=== PATIENT | male | born 2005 | race Caucasian/White ===

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

== ENCOUNTER 2024-09-27 14:06 | Emergency (ER) | payer OTHER, SELFPAY ==
--- OUTSIDE RECORDS SUMMARY | 2024-09-27 14:15 | XMS_ITS | Clinical Summary ---
Author Organization 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 Name Role Phone Unavailable Primary Care Provider Unavailabl e Allergies No known active allergies Medications No known medications Social History Tobacco Use Types Packs/Day Years Used Date Smoking Tobacco: Never Passive Smoke Exposure: Never Smokeless Tobacco: Never Tobacco Cessation:Counseling Given: Not Answered Alcohol Use Standard Drinks/Week Comments Never 0 (1 standard drink = 0.6 oz pur e alcohol) Adolescent Education Answer Date Record ed Getting School Help Needed Not on file 10/25 Feeling Safe Answer Date Recorded Are you in a relationship wi th someone who hurts you emotionally and/or physically? No 07/23/2022 Sex and Gender Information Value Date Recorded Sex Assigned at Not on file Legal Sex Male 7:50 PM CDT Gender Identity Not on file Sexual Orientation Not on file Last Filed Vital Signs Vital Sign Reading Time Taken Comments Blood Pressure 129/79 07/23/2022 9:00 PM CDT Pulse 92 07/23/2022 9:00 PM CDT Temperature 36.4 C (97.5 F) 07/23/2022 7:59 PM CDT Respiratory Rate 16 07/23/2022 9:00 PM CDT Oxygen Saturation 98% 07/23/2022 9:00 PM CDT Inhaled Oxygen Concentration - - Weight 85 kg (187 lb 6.4 oz) 07/23/2022 7:59 PM CDT Height 195.6 cm (6' 5 ) 07/23/2022 7:59 PM CDT Body Mass Index 22.22 07/23/2022 7:59 PM CDT Plan of Treatment Health Maintenance Due Date Last Done Comments CHLAMYDIA SCREENING (ANNUAL) 11-24 YEARS 08/08/2015 HPV VACCINES (1 - Male 3-dose series) 08/08/2019 DTAP/TDAP/TD VACCINES (1 - Tdap) 08/08/2023 HEPATITIS B VACCINES (1 of 3 - 19+ 3-dose series) 07/16 INFLUENZA VACCINE (#1) [address] [place] [place] [address] HEALTH PLAN MEDICAID
[2024-09-27 14:21] VITALS: BP 128/76; PULSE 73; RESP 16; TEMP 36.7; O2SAT 98; BMI 25.4
--- NOTE | 2024-09-27 14:29 | ECG_ITS ---
[facility] Date: 2024-09-27 Pat Name: Jermaine Mcneill Department: Room: Gender: Male Sr. Media Manager: : 2005 Requested By: Kaylene Andrade Order Number: [id number] MD: Sharath Mehta M.D. Measurements Intervals [place] Rate: 70 P: 46 DC: 136 QRS: 86 QRSD: 92 T: 54 QT: 360 QTc: 390 Interpretive Statements SINUS RHYTHM EARLY REPOLARIZATION [ST ELEVATION WITH NORMALLY INFLECTED T-WAVE] No previous ECG available for comparison Electronically Signed On 09-28-2024 09:51:30 CDT by Sharath Mehta M.D. [email or web address]
--- NOTE | 2024-09-27 14:44 | W.ED.GENADLT ---
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 He denies any LOC or seizures. He states his heart has felt off when his heart rate is a little elevated, but he is still able to perform his regular daily activities since then. Denies any pain in his arm or any chest pain. No other complaints at this time. Voltage was a standard 220V wall outlet. He has not had any muscle cramps/weakness. No dark urine. Onset (ago): day(s) (2) Location: chest Severity: mild Relieving factors: none Exacerbating factors: none Associated symptoms: Reports no associated symptoms and palpitations; Deny chest pain, dyspnea, headache(s), malaise, nausea, rash, syncope or vomiting Treatments prior to arrival: none Related Data Previous Rx's ?Medication ?Instructions ?Recorded naproxen 500 mg tablet (Naprosyn) 500 mg PO BID PRN pain #20 tabs 04/22/22 CAM Boot #1 ea 05/14/22 montelukast 10 mg tablet See Rx Instructions .Route 05/20/22 .COMPLEX #30 tabs Custom Inserts #1 ea 07/12/22 ASO Brace #2 ea 01/10/23 Allergies Allergy/AdvReac Type Severity Reaction Status Date / Time No Known Allergies Allergy Verified 10/17/23 15:40 Review of Systems Const: Denies: fever(s), chills, body aches, fatigue or malaise Eyes: Denies: change in vision, blurry vision, floaters or seeing flashes Card: Reports: palpitations; Denies: chest pain, irregular heart rhythm, edema, swelling of feet/ankles, lightheadedness, syncope or pre-syncope Resp: Denies: dyspnea GI: Denies: abdominal pain, nausea or vomiting Musc: Denies: neck pain, back pain, extremity pain, extremity swelling, joint pain, joint swelling or joint redness Skin/Breast: Denies: rash Neuro: Reports: sensory changes (intermittent L UE); Denies: headache(s), numbness in extremities, weakness in extremities or difficulty walking [facility] ED PFSH: Medical History (Updated 09/27/24 @ 14:56 by FAVIAN España) No active medical problems No pertinent past medical history Surgical History No history of previous surgery Social History Smoking and tobacco/nicotine status: never used tobacco/nicotine Physical Exam Const: COMMON NORMALS: no acute distress, average body habitus, patient oriented x3, no limitations, healthy appearing, alert and well nourished GENERAL APPEARANCE: cooperative ORIENTATION/CONSCIOUSNESS: Yes awake, Yes oriented to person, Yes oriented to place and Yes oriented to time Resp: COMMON NORMALS: normal respiratory effort and clear to auscultation bilaterally AUSCULTATION: clear to auscultation bilaterally Cardio: COMMON NORMALS: regular rate and regular rhythm RATE: regular rate RHYTHM: regular rhythm Extremity: COMMON NORMALS: normal to inspection, full ROM, capillary refill normal, no joint enlargement and no clubbing, cyanosis or edema GENERAL: Yes normal exam except as noted OTHER: normal assessment of L UE; no burn injury Neuro: COMMON NORMALS: patient oriented x3, moves all extremities, no focal motor deficits and no sensory deficits noted SENSORIUM/ORIENTATION: Yes alert, Yes oriented to person, Yes oriented to place and Yes oriented to time Course Vital Signs: Vital signs: Vital Signs Temperature 98.0 F 09/27/24 14:21 Pulse Rate 73 09/27/24 14:21 Respiratory Rate 16 09/27/24 14:21 Blood Pressure 128/76 09/27/24 14:21 Pulse Oximetry 98 09/27/24 14:21 Oxygen Delivery Me thod Room Air 09/27/24 14:21 [facility] - General Adult Medical Decision Making Patient is 48 hours out from a low voltage electrocution injury. EKG is unremarkable. Patient will be allowed discharge. Return to ED precautions given. Medical Records I reviewed the patient's medical records. No radiology studies performed this visit Discharge Plan Discharge Patient Disposition: Home Clinical Impression: Electrocution Condition: Stable Prescriptions: No Action (DME) CAM Boot See Rx Instructions .Route .MEDSUPPLY Qty: 1 0RF Rx Instructions: As directed (DME) ASO Brace See Rx Instructions .Route .MEDSUPPLY Qty: 2 0RF Rx Instructions: Left and Right ankle instability montelukast 10 mg tablet See Rx Instructions .ROUTE .COMPLEX Qty: 30 8RF Dose Instruction: TAKE 1 TABLET BY MOUTH EVERY DAY Rx Instructions: TAKE 1 TABLET BY MOUTH EVERY DAY (DME) Custom Inserts See Rx Instructions .Route .MEDSUPPLY Qty: 1 0RF Rx Instructions: As directed Naprosyn 500 mg tablet 500 mg PO BID PRN (Reason: pain) Qty: 20 0RF Discharge Orders: Discharge ED (Routine); Ordered 09/27/24 Ordered By: Kaylene Andrdae Referrals: Issac Pickering MD [Primary Care Provider, Family Practice] Patient Instructions: Patient Portal & Boby Instructions Print Language: Niuean Coding Level of Care Code ED Jack Winder for Crystal Colindres
[2024-09-27 15:11] VITALS: BP 132/84; PULSE 80; RESP 18; O2SAT 100
== END 2024-09-27 15:12 | disposition home or self-care (01) ==
PROVIDERS: Emergency Provider Physician Assistant; PCP Family Medicine
DX: T75.4XXA Electrocution, initial encounter (principal); W86.8XXA Exposure to other electric current, initial encounter
CPT/HCPCS: 93005; 99283

== ENCOUNTER 2024-10-03 10:34 | Emergency (ER) | payer SELFPAY ==
--- OUTSIDE RECORDS SUMMARY | 2024-10-03 10:40 | XMS_ITS | Clinical Summary ---
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
[2024-10-03 10:50] VITALS: BP 144/90; PULSE 72; RESP 18; TEMP 36.8; O2SAT 99; BMI 24.8
[2024-10-03 11:22] LABS: Rapid Strep A Test Negative (Negative)
--- NOTE | 2024-10-03 11:47 | ED_ITS ---
HPI - URI/Sore Throat General: Chief Complaint: Upper Respiratory Infection Stated Complaint: sore throat Time Seen by Provider: 10/03/24 11:00 History of Present Illness: 19-year-old male presents to the emergen cy room with a sore throat. The patient reports no fever, stating I haven't felt feverish at all, no, really. When asked about cough, the patient responds, Not really, no. 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 They express concerns about the company van, describing it as disgusting with so much nasty crap in there. The patient suggests this exposure occurs frequently, stating, that happens every time I'm getting there. No other symptoms or health concerns are reported by the patient during this visit. Related Data Previous Rx's ?Medication ?Instructions ?Recorded naproxen 500 mg tablet (Naprosyn) 500 mg PO BID PRN pa in #20 tabs 04/22/22 CAM Boot #1 ea 05/14/22 montelukast 10 mg tablet See Rx Instructions .Route 0 05/20/22 .COMPLEX #30 tabs Custom Inserts #1 ea 07/12/22 ASO Brace #2 ea 01/10/23 Allergies Allergy/AdvReac Type Severity Reaction Status Date / Time No Known Allergies Allergy Verified 10/17/23 15:40 Review of Systems General: Reports: 10 or more systems reviewed and unremarkable except in HPI and below PFSH ED PFSH: Medical History (Updated 10/03/24 @ 11:53 by Desmond Reyes DO) No active medical problems No pertinent past medical history Surgical History No history of previous surgery Social History Smoking and tobacco/nicotine status: never used tobacco/nicotine Physical Exam Const: COMMON NORMALS: no acute distress, patient oriented x3, healthy appearing, alert and well nourished HENMT: COMMON NORMALS: normocephalic HEAD & SCALP: normocephalic Eye: COMMON NORMALS: EOMs intact bilaterally Neck/C-Spine: COMMON NORMALS: full ROM and supple Resp: COMMON NORMALS: normal respiratory effort, No retractions and clear to auscultation bilaterally AUSCULTATION: clear to auscultation bilaterally Cardio: COMMON NORMALS: regular rate, regular rhythm, No gallops present (Cardio) and No murmurs present (Cardio) RATE: regular rate RHYTHM: regular rhythm GI: COMMON NORMALS: Soft to palpation and non-tender PALPATION: Yes Soft to palpation Extremity: GENERAL: Yes normal exam except as noted Neuro: COMMON NORMALS: patient oriented x3 SENSORIUM/ORIENTATION: Yes alert Skin: COMMON NORMALS: no rashes or lesions noted GENERAL SKIN EXAM: no rashes or lesions noted Course Vital Signs: Vital signs: Vital Signs Temperature 98.3 F 10/03/24 10:50 Pulse Rate 72 10/03/24 10:50 Respiratory Rate 18 10/03/24 10:50 Blood Pressure 144/90 10/03/24 10:50 Pulse Oximetry 99 10/03/24 10:50 Oxygen Delivery Me thod Room Air 10/03/24 10:50 MDM - URI/Sore Throat Medical Decision Making 19-year-old male presents with sore throat without associated fever or significant cough. Strep test was negative, though the test's accuracy may have been compromised due to difficulty in swabbing the tonsils. Physical examination revealed red and swollen tonsils without exudates. Given the presentation and examination findings, the most likely etiology is a viral infection rather than streptococcal pharyngitis. - Supportive care for 7-10 days - Recommend [id number] pain relief: - Acetaminophen or ibuprofen as needed for pain and discomfort - Suggest numbing sprays for symptomatic relief - Return for reevaluation if symptoms worsen or new symptoms develop - Follow up with primary care provider if needed Lab Data Laboratory Results Group A Strep Rapid Negative (Negative) 10/03/24 11:04 No radiology studies performed this visit Discharge Plan Discharge Patient Disposition: Home Clinical Impression: Viral infection Pharyngitis Qualifiers: Pharyngitis/tonsillitis etiology: unspecified etiology Qualified Code(s): J02.9 - Acute pharyngitis, unspecified Condition: Stable Prescriptions: No Action (DME) CAM Boot See Rx Instructions .Route .MEDSUPPLY Qty: 1 0RF Rx Instructions: As directed (DME) ASO Brace See Rx Instructions .Route .MEDSUPPLY Qty: 2 0RF Rx Instructions: Left and Right ankle instability montelukast 10 mg tablet See Rx Instructions .ROUTE .COMPLEX Qty: 30 8RF Dose Instruction: TAKE 1 TABLET BY MOUTH EVERY DAY Rx Instructions: TAKE 1 TABLET BY MOUTH EVERY DAY (DME) Custom Inserts See Rx Instructions .Route .MEDSUPPLY Qty: 1 0RF Rx Instructions: As directed Naprosyn 500 mg tablet 500 mg PO BID PRN (Reason: pain) Qty: 20 0RF Discharge Orders: Discharge ED (Routine); Ordered 10/03/24 Ordered By: Desmond Reyes Referrals: Issac Pickering MD [Primary Care Provider, Family Practice] Discharge Diet: Advance as tolerated Discharge Activity: Resume usual activity Patient Instructions: Opioid Safety, Pain Management, Patient Portal & Boby Instructions Activity Restrictions/Additional Instructions: Please follow-up with your primary care provider as needed for persistent symptoms. Return to the emergency department with any new or worsening symptoms. Print Language: [place] Island[place] Coding Level of Care Code ED Traffic Warehouse Supervisor for Crystal Colindres
[2024-10-03 11:57] VITALS: BP 126/80; PULSE 88; O2SAT 97
== END 2024-10-03 11:57 | disposition home or self-care (01) ==
PROVIDERS: Emergency Provider General Practice; PCP Family Medicine
DX: J02.9 Acute pharyngitis, unspecified (principal); B34.9 Viral infection, unspecified
CPT/HCPCS: 87081; 87880; 99283